=== PATIENT | male | born 1955 | race Two or more races ===

== ENCOUNTER 2020-10-20 11:31 | Emergency (ER) | payer OTHER ==
[~2020-10-20] VITALS: Ht 170.2 cm; Wt 75.3 kg
[2020-10-20] MEDS ORDERED: QUETIAPINE FUM300 MG (12:00)
[2020-10-20] MEDS ORDERED: COZAAR50 MG PO (13:38)
[2020-10-20] MEDS ORDERED: MEDROLPACK PO (13:38)
[2020-10-20] MEDS ORDERED: ALLERGY RELIEF10 M3 PO (13:38)
== END 2020-10-20 15:22 | disposition home or self-care (01) ==
LOC: ER 11:31
DX: T78.3XXA Angioneurotic edema, initial encounter (principal)